=== PATIENT | female | born 1990 ===

== ENCOUNTER 2017-05-27 21:56 | Emergency (ER) | payer SELFPAY ==
[2017-05-27 21:57] VITALS: BMI 27.8
[2017-05-27 22:01] VITALS: BP 123/64; PULSE 79; RESP 16; TEMP 98.4; O2SAT 99
[2017-05-27] MEDS ORDERED: Oxycodone/Acetaminophen 5/325 mg Tab PO STA (22:04)
--- NOTE | 2017-05-27 22:14 | ED PDOC ---
HPI: Back Time Seen by Provider: 05/27/17 22:53 Chief Complaint (Nursing): Back Pain Chief Complaint (Provider): back pain History Per: Patient History/Exam Limitations: no limitations Additional Complaint(s): 27yo F in ED for eval of ack pain x 3 months states she noted the pain after her epidural inj fro her . Pt was seen at [facility] last week and Rx flexril and motrin but states she has pain. denies nausea vomiting fever abd pain dysuria hemautira denies incontinence of BM or urine. Past Medical History Reviewed: Historical Data, Nursing Documentation, Vital Signs Vital Signs: Last Vital Signs Temp 98.4 F 05/27/17 21:58 Pulse 79 05/27/17 21:58 Resp 16 05/27/17 21:58 BP 123/64 05/27/17 21:58 Pulse Ox 99 05/27/17 21:58 - Medical History PMH: No Chronic Diseases - Family History Family History: States: No Known Family Hx - Immunization History Hx Tetanus Toxoid Vaccination: No Hx Influenza Vaccination: No Hx Pneumococcal Vaccination: No - Home Medications Home Medications: Ambulatory Orders Medication Instructions Recorded Methocarbamol [Robaxin] 500 mg PO TID #14 tab 04/30/17 traMADol [Ultram] 50 mg PO TID #7 tab 04/30/17 - Allergies Allergies/Adverse Reactions: Allergies Allergy/AdvReac Type Severity Reaction Status Date / Time No Known Allergies Allergy Verified 05/27/17 21:57 Review of Systems ROS Statement: Except As Marked, All Systems Reviewed And Found Negative Musculoskeletal: Positive for: Back Pain Physical Exam - Reviewed Nursing Documentation Reviewed: Yes Vital Signs Reviewed: Yes - Physical Exam Appears: Positive for: Non-toxic, No Acute Distress, Uncomfortable Head Exam: Positive for: ATRAUMATIC, NORMAL INSPECTION, NORMOCEPHALIC Skin: Positive for: Normal Color, Warm, DRY Cardiovascular/Chest: Positive for: Regular Rate, Rhythm Respiratory: Positive for: CNT, Normal Breath Sounds Gastrointestinal/Abdominal: Positive for: Normal Exam, Bowel Sounds, Soft. Negative for: Tenderness Back: Positive for: Normal Inspection, Vertebral Tenderness (lumbar), Muscle Spasm. Negative for: L CVA Tenderness, R CVA Tenderness, Decreased ROM Extremity: Positive for: Normal ROM Neurologic/Psych: Positive for: Alert, Oriented - Laboratory Results Urine dip results: Negative for: Leukocyte Esterase, Blood, Nitrate, Ketones, Glucose, Bilirubin, Protein - ECG O2 Sat by Pulse Oximetry: 99 Medical Decision Making Medical Decision Making: pt with (-) UA for UTI pt given torodol IM inj advised that since Xray of lumbar spine were normal were negative advised to have pmd f.u with PTx. Disposition - Clinical Impression Clinical Impression: Lumbar radiculopathy - Patient ED Disposition Is Patient to be Admitted: No Counseled Patient/Family Regarding: Studies Performed, Diagnosis, Need For Followup - Disposition Referrals: [facility] [Outside] [facility] [Outside] Disposition: Routine/Home Disposition Time: 22:56 Condition: STABLE Instructions: Lumbar Radiculopathy (ED) Forms: [facility] ED School/Work Excuse Print Language: PASHTO
[2017-05-27 22:32] LABS: SQUAMOUS EPITHIAL < 1 /hpf (0-5); URINE BACTERIA RARE (<OCC); URINE BILIRUBIN NEGATIVE (NEGATIVE); URINE BLOOD NEGATIVE (NEGATIVE); URINE CLARITY CLEAR (Clear); URINE COLOR COLORLESS (YELLOW); URINE GLUCOSE (UA) NEG (Normal); URINE LEUKOCYTE ESTERASE NEG Leu/uL (Negative); URINE NITRATE NEGATIVE (NEGATIVE); URINE PROTEIN NEGATIVE (NEGATIVE); URINE UROBILINOGEN 0.2-1.0 mg/dL (0.2-1.0)
== END 2017-05-27 23:07 | disposition home or self-care (01) ==
LOC: H.ER 21:56
DX: M54.16 Radiculopathy, lumbar region (principal)
CPT/HCPCS: 81003; 81025; 96372; 99282; J1885